=== PATIENT | male | born 1970 | race Caucasian/White ===

== ENCOUNTER → 2021-07-09 | Outpatient (REF) ==
[2021-07-09 12:43] LABS: POTASSIUM 3.9 mmol/L (3.5-5.1)
[2021-07-09 12:44] LABS: CALCIUM 9.3 mg/dL (8.3-10.5)
[2021-07-09 12:50] LABS: MAGNESIUM 2.02 mg/dL (1.60-2.60)
== END ==
LOC: LAB 09:50
PROVIDERS: Internal Medicine Cardiovascular Disease
DX: Z01.89 Encounter for other specified special examinations (principal)